=== PATIENT | male | born 1955 | race Caucasian/White ===

== ENCOUNTER 2022-10-01 10:57 | Emergency (ER) | payer MEDICARE ==
[~2022-10-01] VITALS: Ht 180.3 cm; Wt 108.9 kg
[2022-10-01 11:05] VITALS: O2SAT 100
[2022-10-01] MEDS ORDERED: IBUPROFEN 600 MG TAB PO STA (11:08)
[2022-10-01] MEDS ORDERED: DEXAMETHASONE SOD PHOS 10 MG/1 ML VIAL IM ONE (11:15)
[2022-10-01] MEDS ORDERED: IBUPROFEN 600 MG TAB ONE (11:24)
[2022-10-01] MEDS ORDERED: DEXAMETHASONE SOD PHOS 10 MG/1 ML VIAL ONE (11:24)
== END 2022-10-01 11:37 | disposition home or self-care (01) ==
LOC: ER 11:03
DX: M54.50 Low back pain, unspecified (principal); M79.605 Pain in left leg; G89.29 Other chronic pain; M19.09 Primary osteoarthritis, other specified site; I10 Essential (primary) hypertension
CPT/HCPCS: 99282; J1100

== ENCOUNTER 2024-02-06 10:55 | Emergency (ER) | payer MEDICARE ==
[~2024-02-06] VITALS: Ht 180.3 cm; Wt 108.9 kg
[2024-02-06 11:44] VITALS: PULSE 72; RESP 18; TEMP 98.2; O2SAT 99
[2024-02-06] MEDS: KETOROLAC TROMETHAMINE 60 MG/2 ML VIAL IM ONE (12:15)
== END 2024-02-06 12:31 | disposition home or self-care (01) ==
LOC: ER 11:29
DX: M25.562 Pain in left knee (principal); M25.462 Effusion, left knee; Y93.01 Activity, walking, marching and hiking; I10 Essential (primary) hypertension
CPT/HCPCS: 99283; J1885